=== PATIENT | female | born 1955 | race Native Hawaiian/Other Pacific Islander ===

== ENCOUNTER 2018-09-22 23:44 | Emergency (ER) | payer OTHER ==
[~2018-09-22] VITALS: Ht 160 cm; Wt 71.7 kg
[2018-09-22 23:55] VITALS: TEMP 97.7
[2018-09-23] MEDS ORDERED: DONE5TAB PO ×3 (00:45→01:10)
[2018-09-23] MEDS ORDERED: ASPIRIN 8181 MG PO (00:47)
[2018-09-23] MEDS ORDERED: LEVO0.0218 PO (00:47)
[2018-09-23] MEDS ORDERED: CLOPIDOGREL75 MG PO (00:48)
[2018-09-23] MEDS ORDERED: LISI5TAB10 PO (00:48)
[2018-09-23] MEDS ORDERED: KP FOLIC ACID1 MG PO (00:49)
[2018-09-23] MEDS ORDERED: KLOR-CON M1010 MEQ PO (00:49)
[2018-09-23] MEDS ORDERED: SEROQUEL25 MG PO (00:50)
[2018-09-23] MEDS ORDERED: NAMENDA5 MG PO (00:51)
[2018-09-23 00:53] LABS: PLATELET COUNT 318 K/uL (152-353)
[2018-09-23] MEDS ORDERED: CLON0.1T16 PO (00:53)
[2018-09-23] MEDS ORDERED: TRILEPTAL150 MG PO (00:53)
[2018-09-23 01:03] LABS: POTASSIUM 4.1 mmol/L (3.6-5.2)
[2018-09-23] MEDS ORDERED: SUCRALFATE1 GM PO (01:04)
[2018-09-23] MEDS ORDERED: CLON1TAB18 PO (01:05)
[2018-09-23] MEDS ORDERED: PAROXETINE40 MG PO (01:06)
[2018-09-23] MEDS ORDERED: GABA300C2 PO (01:06)
[2018-09-23] MEDS ORDERED: QUETIAPINE300 MG PO (01:07)
[2018-09-23] MEDS ORDERED: TRAMADOL HYDROC50 MG PO (01:08)
[2018-09-23] MEDS ORDERED: SIMV40TA57 PO (01:08)
[2018-09-23] MEDS ORDERED: PROMETHAZINE HC50 MG PO (01:09)
[2018-09-23] MEDS ORDERED: TRILEPTAL300 MG PO (01:09)
[2018-09-23 02:39] VITALS: BP 161/87
== END 2018-09-23 02:40 | disposition other institution (70) ==
LOC: ED 23:44
PROVIDERS: Emergency Medicine
DX: F28 Other psychotic disorder not due to a substance or known physiological condition (principal); Z04.6 Encounter for general psychiatric examination, requested by authority
CPT/HCPCS: 36415; 80053; 81000; 85027; 93005; 96372; 99285; J2060